=== PATIENT | female | born 1965 | race Caucasian/White ===

== ENCOUNTER 2025-05-17 02:47 | Emergency (ER) | payer OTHER ==
[2025-05-17 04:05] LABS: APPEARANCE,URINE CLEAR (CLEAR); GLUCOSE,URINE NEGATIVE (NEGATIVE); OCCULT BLOOD,URINE NEGATIVE (NEGATIVE)
[2025-05-17] MEDS: Take Home: Acetaminophen/HYDROcodone 325-5 MG, 5 Tab Pack PO ONE (04:23)
[2025-05-17] MEDS: Take Home: Doxycycline 100 MG Cap, 4 Cap Pack PO ONE (04:23)
[2025-05-17] MEDS: Ketorolac 30 MG/ML SDV IM ONE (04:23)
[2025-05-17] MEDS: Dexamethasone 4 MG/ML SDV PO ONE (04:24)
== END 2025-05-17 04:29 | disposition home or self-care (01) ==
LOC: DL.ED 02:47
DX: J40 Bronchitis, not specified as acute or chronic (principal); R91.8 Other nonspecific abnormal finding of lung field
CPT/HCPCS: 71045; 81003; 87428; 96372; 99283; A9270; J1100; J1885